=== PATIENT | female | born 1955 | race Caucasian/White ===

== ENCOUNTER → 2016-12-13 | Outpatient (CLI) | payer OTHER ==
[~2016-12-13] MED LIST: ASPI81TA28 PO; ATOR10TA88 PO; COEN1CAP17 PO; ESTR0.3T PO; LEVO75TA PO; MISCCAP80 PO; MULT-506 PO; OMEG10007 PO
[2016-12-13 13:03] LABS: AST/SGOT 22 U/L (15-37); BLOOD UREA NITROGEN 20 mg/dl (7-18); CALCIUM 9.5 mg/dl (8.5-10.1); CARBON DIOXIDE 31 mmol/L (21-32); CHLORIDE 104 mmol/L (98-107); CREATININE 0.89 mg/dl (0.60-1.20); GLUCOSE 80 mg/dl (70-99); POTASSIUM 4.1 mmol/L (3.5-5.1); SODIUM 139 mmol/L (136-145)
[2016-12-13 13:13] LABS: ALB/GLOB RATIO 1.1 (0.9-2); ALKALINE PHOSPHATASE 63 U/L (45-117); ALT/SGPT 35 U/L (12-78); CHOLESTEROL 189 mg/dl (0-200); HDL CHOLESTEROL 63 mg/dl; LDL CHOLESTEROL CALCULATED 109 mg/dl; TRIGLYCERIDES 83 mg/dl (0-150); VERY LOW DENSITY LIPOPROT CALC 17 mg/dl
[2016-12-13 13:32] LABS: ESTIMATED AVERAGE GLUCOSE 117 mg/dl; HA1C FLAG Normal (Normal)
== END | disposition home or self-care (01) ==
LOC: C.LABPBG 07:34
PROVIDERS: ATTEND Family Medicine
DX: E78.00 Pure hypercholesterolemia, unspecified (principal); E03.9 Hypothyroidism, unspecified; R73.03 Prediabetes

== ENCOUNTER → 2017-01-05 | Outpatient (CLI) | payer OTHER ==
--- NOTE | 2017-01-05 08:16 | DIAGNOSTIC IMAGING REPORT ---
THYROID ULTRASOUND CLINICAL HISTORY: R22.1 Nodule of [id number] COMPARISON STUDY: Thyroid ultrasound on July 14, 2014. TECHNIQUE: Sonography of the thyroid gland was performed. FINDINGS: The right thyroid lobe measures 3.8 x 0.8 x 1 cm and the left lobe measures 3 x 1.1 x 1 cm. No right lobe thyroid nodule is noted. Note is made of a 1.3 x 0.7 x 0.8 cm mixed echogenicity solid nodule within the mid to lower pole of the left thyroid lobe. Allowing for measurement variability, this is similar to prior exam. This nodule was previously aspirated. IMPRESSION: No significant change in the previously aspirated left lobe thyroid nodule. Electronically signed by: Eliel Rush M.D. 01/05/2017 8:14 AM Dictated Date/Time: 01/05/2017 8:11 AM
== END | disposition home or self-care (01) ==
LOC: C.ULTR 07:38
PROVIDERS: ATTEND Family Medicine
DX: E04.1 Nontoxic single thyroid nodule (principal)

== ENCOUNTER → 2017-03-07 | Outpatient (CLI) | payer OTHER ==
[~2017-03-07] MED LIST changes: +ATOR10TA82 PO; -ATOR10TA88 PO
--- NOTE | 2017-03-08 14:34 | MAMMOGRAPHY REPORT ---
BILATERAL DIGITAL SCREENING MAMMOGRAM TOMOSYNTHESIS WITH CAD: 03/07/2017 CLINICAL HISTORY: Routine screening. TECHNIQUE: Breast tomosynthesis in addition to standard 2D mammography was performed. Current study was also evaluated with a Computer Aided Detection (CAD) system. COMPARISON: Comparison is made to exams dated: 03/06/2016 mammogram, 03/02/2015 mammogram, 12/22/2013 mammogram, 12/03/2012 mammogram, 11/21/2011 mammogram, and 11/15/2010 mammogram - [facility]. BREAST COMPOSITION: The tissue of both breasts is heterogeneously dense, which may obscure small mas ses. FINDINGS: There is an 11 mm asymmetry seen within the right lateral breast middle depth on the MLO vi ew only, which may represent normal overlapping fibroglandular tissue although spot compression tomos ynthesis views and possible breast ultrasound are recommended for further evaluation. The remainder of both breasts are stable compared to prior exams, without suspicious masses, calcific ations, or areas of architectural distortion noted. Scattered bilateral benign-appearing calcificati ons are not significantly changed. IMPRESSION: ACR BI-RADS CATEGORY 0: INCOMPLETE EVALUATION: NEED ADDITIONAL IMAGING EVALUATION Right breast asymmetry, for which additional imaging evaluation is recommended. The patient will be called to schedule an appointment. Approximately 10% of breast cancers are not detected with mammography. A negative mammographic report should not delay biopsy if a clinically suggestive mass is present. Paige Reyna M.D. /:03/07/2017 16:48:30 [employer]: Luis MARX(Andrzej)(Ricardo), [facility] letter sent: Addl Imaging 0 BI-RADS Code: ACR BI-RADS Category 0: Incomplete Evaluation: Need Additional Imaging Evaluation
== END | disposition home or self-care (01) ==
LOC: C.MAMM 08:12
PROVIDERS: ATTEND Family Medicine
DX: Z12.31 Encounter for screening mammogram for malignant neoplasm of breast (principal); N64.89 Other specified disorders of breast

== ENCOUNTER → 2017-07-09 | Outpatient (CLI) | payer OTHER ==
[2017-07-09 12:49] LABS: HEMOGLOBIN A1C 5.7 % (4.5-5.6)
[2017-07-09 13:37] LABS: ALBUMIN 3.8 gm/dl (3.4-5.0); ALT/SGPT 30 U/L (12-78); BLOOD UREA NITROGEN 18 mg/dl (7-18); CALCIUM 8.9 mg/dl (8.5-10.1); CARBON DIOXIDE 29 mmol/L (21-32); CHOLESTEROL 170 mg/dl (0-200); CREATININE 0.87 mg/dl (0.60-1.20); GLUCOSE 88 mg/dl (70-99); POTASSIUM 4.3 mmol/L (3.5-5.1); SODIUM 140 mmol/L (136-145)
[2017-07-09 13:48] LABS: ALKALINE PHOSPHATASE 56 U/L (45-117); AST/SGOT 18 U/L (15-37); LDL CHOLESTEROL CALCULATED 102 mg/dl; TOTAL PROTEIN 6.9 gm/dl (6.4-8.2)
== END | disposition home or self-care (01) ==
LOC: C.LABPBG 07:32
PROVIDERS: ATTEND Family Medicine
DX: E78.00 Pure hypercholesterolemia, unspecified (principal); E03.9 Hypothyroidism, unspecified; R73.03 Prediabetes

== ENCOUNTER 2019-08-04 06:09 | Inpatient (IN) ==
--- NOTE | 2019-07-16 12:30 | PAT Medication Instructions ---
Medication Instructions Date of Service July 16, 2019 Home Medications Medication Instructions Recorded atorvastatin 10 mg tablet 10 mg PO DAILY #90 tab 01/24/19 coenzyme Q10 100 mg capsule 100 mg PO DAILY #30 cap 01/24/19 conjugated estrogens 0.3 mg tablet 0.3 mg PO DAILY #90 tab 01/24/19 levothyroxine 75 mcg tablet 75 mcg PO DAILY #90 tab 01/24/19 multivitamin 1 tab PO DAILY #30 tab 01/24/19 atorvastatin 10 mg tablet 10 mg PO DAILY coenzyme Q10 100 mg capsule 100 mg PO DAILY conjugated estrogens 0.3 mg tablet 0.3 mg PO DAILY levothyroxine 75 mcg tablet 75 mcg PO DAILY multivitamin 1 tab PO DAILY acetaminophen [Tylenol Arthritis Pain] 650 mg PO DAILY PRN bacillus coagulans-inulin [Probiotic with Prebiotic] 1 cap PO DAILY meloxicam 15 mg PO DAILY PRN prednisone 10 - 80 mg PO UD Continue as directed prednisone 10 - 80 mg PO UD ASK your surgeon for instructions conjugated estrogens 0.3 mg tablet 0.3 mg PO DAILY meloxicam 15 mg PO DAILY PRN STOP taking 2 weeks before surgery (or as soon as possible if surgery is within 2 weeks) coenzyme Q10 100 mg capsule 100 mg PO DAILY DO NOT take the morning of surgery multivitamin 1 tab PO DAILY bacillus coagulans-inulin [Probiotic with Prebiotic] 1 cap PO DAILY Take morning of surgery With a small sip of water, OTHERWISE NOTHING TO EAT OR DRINK AFTER MIDNIGHT: atorvastatin 10 mg tablet 10 mg PO DAILY levothyroxine 75 mcg tablet 75 mcg PO DAILY acetaminophen [Tylenol Arthritis Pain] 650 mg PO DAILY PRN (okay to take up to 4 hours prior to surgery if needed) Take evening before surgery acetaminophen [Tylenol Arthritis Pain] 650 mg PO DAILY PRN (if needed) Other Notes If you have any questions please call us at [phone] or [phone] or [phone] or [phone]
--- NOTE | 2019-07-17 08:20 | Anesthesiology Consultation ---
Date of Service July 17, 2019 Assessment & Plan (1) Encounter for pre-operative examination: Chart Review Chart Review: Acceptable Risk for Surgery and Patient seen in Pre Admission Testing Teaching & Discussion Pre-Anesthesia Teaching/Discussion Notes: Instructed NPO after midnight before surgery,except medications with 15 cc of water. Medication instructions provided according to the PAT guidelines. History Surgery Operation Date: 08/22/19 14:05 Proposed Procedures p C5-C6 Anterior Cervical Discectomy and Fusion, C6 Corpectomy, Spinal Cord Monitoring - Emmanuel Marhkam DO Height/Weight Height: 5 ft 6.5 in Weight: 73.1 kg Allergies Allergy/AdvReac Type Severity Reaction Status Date / Time povidone-iodine Allergy Severe broke down Verified 07/16/19 10:38 [From Betadine] skin, rash soap [From Betadine] Allergy Severe broke down Verified 07/16/19 10:38 skin, rash Medications Home Medications Medication Instructions Recorded Confirmed Last Taken atorvastatin 10 mg tablet 10 mg PO DAILY #90 tab 01/24/19 07/16/19 Unknown coenzyme Q10 100 mg capsule 100 mg PO DAILY #30 cap 01/24/19 07/16/19 Unknown conjugated estrogens 0.3 mg tablet 0.3 mg PO DAILY #90 tab 01/24/19 07/16/19 Unknown levothyroxine 75 mcg tablet 75 mcg PO DAILY #90 tab 01/24/19 07/16/19 Unknown multivitamin 1 tab PO DAILY #30 tab 01/24/19 07/16/19 Unknown acetaminophen [Tylenol Arthritis 650 mg PO DAILY PRN 07/16/19 07/16/19 Unknown Pain] bacillus coagulans-inulin 1 cap PO DAILY 07/16/19 07/16/19 Unknown [Probiotic with Prebiotic] meloxicam 15 mg PO DAILY PRN 07/16/19 07/16/19 Unknown prednisone 10 - 80 mg PO UD 07/16/19 07/16/19 Unknown Past Medical History Medical History Bulging of intervertebral disc Degenerative disc disease Diverticulitis Hyperlipidemia Hypothyroidism Osteoarthritis Varicose vein of leg Exercise / Class Metabolic Activity II 4-5 Yardwork/Stairs/Walk up hill Past Family History Family History Son FHx: Hodgkin's disease, Onset Age: 35 Hodgkin's Lymphoma Past Surgical History Surgical History H/O laminectomy L5-S1 H/O vein stripping History of appendectomy History of colonoscopy History of tubal ligation S/P arthroscopy of right shoulder S/P epidural steroid injection S/P right hemicolectomy S/P T&A (status post tonsillectomy and adenoidectomy) S/P EMERSON-BSO Past Anesthesia History No Hx of Anesthesia Complications and No Family Hx of Anesthesia Complications History of PONV No Hx of PONV and Hx of Motion Sickness (with car rides) Social History Smoking Status: Never smoker Do You Dip or Chew Tobacco: No Hx Alcohol Use: Yes Alcohol type: wine alcohol intake frequency: a few times a week Hx Substance Use: No substance use type: does not use Review of Systems Patient denies chest pain, shortness of breath, dyspnea on exertion, cough, wheezing, palpitations. Physical Exam Vital Signs VITALS BP 156/73 P 74 TEMP 97.9 SP02 96%RA RESP 18 PHYSICAL Decreased cervical extension 2/2 cervicalgia Full TMJ range of motion. TMD 3 finger breaths Mallampati Score 2 Dentition: intact Lungs: clear throughout to auscultation Cardiac: regular rate and rhythm, no murmurs noted Spine: normal Carotid arteries: negative bruit Extremities: no edema Testing Laboratory Results PT 10.3 Seconds (9.0-12.0) 07/17/19 09:13 INR 1.0 (0.9-1.1) 07/17/19 09:13 APTT 22.8 Seconds (21.0-31.0) 07/17/19 09:13 Urine Color Yellow 07/17/19 09:13 Urine Appearance Clear (Clear) 07/17/19 09:13 Urine pH 7.0 (4.5-7.5) 07/17/19 09:13 Ur Specific [place] 1.021 (1.000-1.030) 07/17/19 09:13 Urine Protein Negative (Negative) 07/17/19 09:13 Urine Glucose (UA) Negative (Negative) 07/17/19 09:13 Urine Ketones Negative (Negative) 07/17/19 09:13 Urine Nitrite Negative (Negative) 07/17/19 09:13 Ur Leukocyte Esterase Negative (Negative) 07/17/19 09:13 Blood Type A Positive 07/17/19 09:13 Antibody Screen NEGATIVE 07/17/19 09:13 07/17/19 WBC 10.27 H/H 14.2/43.3 PLATELETS 242 SODIUM 139 POTASSIUM 3.9 CHLORIDE 105 CO2 30 BUN 19 CREATININE 0.88 GLUCOSE 75 TSH 0.789 (WNL) HGBA1C 5.8% Electrocardiogram Date: 07/17/19 Findings: + NSR @ (61) Chest X-Ray Date: 07/17/19 Chronic interstitial thickening is similar to previous. There is mild bibasilar scarring/atelectasis. No airspace consolidation or pleural effusion is identified. There is no pneumothorax. The skeletal structures are osteopenic. The bony thorax appears intact. IMPRESSION: No active disease in the chest.
--- NOTE | 2019-07-17 09:40 | XRay Report ---
TWO VIEW CHEST CLINICAL HISTORY: Preoperative examination. FINDINGS: PA and lateral chest radiographs are compared to study dated 10/23/2013 and correlated with chest CT dated 02/01/2015. The cardiomediastinal silhouette is unremarkable. Chronic interstitial thic kening is similar to previous. There is mild bibasilar scarring/atelectasis. No airspace consolidatio n or pleural effusion is identified. There is no pneumothorax. The skeletal structures are osteopenic . The bony thorax appears intact. IMPRESSION: No active disease in the chest. ACT 112: Negative or not required by law. Electronically signed by: Isaias Brennan M.D. 07/17/2019 9:39 AM
[2019-07-17 11:00] LABS: Appearance Urine Clear (Clear); Bilirubin Urine Negative (Negative); Blood Urine Negative (Negative); Color Urine Yellow; Glucose Urine UA Negative (Negative); Ketones Urine Negative (Negative); Leukocyte Esterase Urine Negative (Negative); Nitrite Urine Negative (Negative); Protein Urine Negative (Negative); Specific Gravity Urine 1.021 (1.000-1.030); Urobilinogen Urine Negative (Negative)
[2019-07-17 11:11] LABS: Partial Thromboplastin Ratio 0.8; Partial Thromboplastin Time 22.8 Seconds (21.0-31.0); Prothrombin Time 10.3 Seconds (9.0-12.0)
--- NOTE | 2019-07-17 18:09 | Electrocardiogram Report ---
Test Reason : Blood Pressure : / mmHG Vent. Rate : 061 BPM Atrial Rate : 061 BPM P-R Int : 136 ms QRS Dur : 090 ms QT Int : 410 ms P-R-T Axes : 057 -16 055 degrees QTc Int : 412 ms Normal sinus rhythm Normal ECG When compared with ECG of 18-NOV-2015 08:50, No significant change was found Confirmed by Victor Manuel Cooney ([id number]) on 07/17/2019 6:08:52 PM Referred By: Emmanuel Markham Confirmed By:Victor Manuel Cooney
[~2019-08-04 06:09] MED LIST changes: +ACETAMINOPHEN 500 MG TAB PO SCH; -ASPI81TA28 PO; -ATOR10TA82 PO; +CEFAZOLIN 1000MG 1,000 MG/7.5 ML SYR IV SCH; -COEN1CAP17 PO; +CeleBREX 200 MG CAP PO SCH; -ESTR0.3T PO; +GABAPENTIN 600 MG DOSE PO SCH; -LEVO75TA PO; +LR 15ML/HR IV SCH; -MISCCAP80 PO; -MULT-506 PO; -OMEG10007 PO
[2019-08-04] MEDS ORDERED: MIDAZOLAM HCL 1 MG/ML 2ML VIAL ONE (06:51)
[2019-08-04] MEDS ORDERED: PROPOFOL IV EMULSION 10 MG/ML 20 ML VIAL IV ONE (06:51)
[2019-08-04] MEDS ORDERED: ONDANSETRON INJ 2 MG/ML 2 ML VIAL ONE (06:51)
[2019-08-04] MEDS ORDERED: ROCURONIUM BROMIDE 10 MG/ML 5 ML VIAL ONE (06:51)
[2019-08-04] MEDS ORDERED: LIDOCAINE HCL 2% 2 ML VIAL/AMP(20MG/ML) INFIL ONE (06:51)
[2019-08-04] MEDS ORDERED: fentaNYL citrate 100 MCG/2 ML VIAL ONE ×2 (06:52→09:55)
[2019-08-04] MEDS ORDERED: PROMETHAZINE HCL 12.5 MG in SODIUM CHLORIDE 0.9% 50 ML IV PRN ×2 (06:59→11:17)
[2019-08-04] MEDS ORDERED: LABETALOL HCL IV 5 MG/ML 20ML IV PRN (06:59)
[2019-08-04] MEDS ORDERED: ONDANSETRON INJ 2 MG/ML 2 ML VIAL IV PRN ×2 (06:59→11:17)
[2019-08-04] MEDS ORDERED: MoRPHine SULFATE 10 MG/ML CARP/VIAL IV PRN (06:59)
[2019-08-04] MEDS ORDERED: ATROPINE SULFATE 0.1 MG/ML 10ML SYR IV PRN (06:59)
--- NOTE | 2019-08-04 07:29 | History & Physical Bridge Note ---
Date of Service August 04, 2019 History & Physical Bridge Note I have examined the patient, reviewed the History & Physical and in the interval since the performance of the History & Physical I have noted the following changes of clinical significance: no changes noted
--- NOTE | 2019-08-04 07:31 | History & Physical Report ---
Date of Service August 04, 2019 Assessment & Plan (1) Myelopathy concurrent with and due to spinal stenosis of cervical region: C7 corpectomy Present on Admission?: Yes History of Present Illness Chief Complaint: Neck pain arm pain and weakness Primary Care Provider: Keely Delgado DO This is a 63-year-old female who presents with marked decline in neurologic status with neck and arm symptoms. Subsequently she is here for urgent surgery. Allergies Allergy/AdvReac Type Severity Reaction Status Date / Time povidone-iodine Allergy Severe broke down Verified 08/04/19 06:23 [From Betadine] skin, rash soap [From Betadine] Allergy Severe broke down Verified 08/04/19 06:23 skin, rash Home Medications Home Medications Medication Instructions Recorded Confirmed Type atorvastatin 10 mg tablet 10 mg PO DAILY #90 tab 01/24/19 08/04/19 Rx coenzyme Q10 100 mg capsule 100 mg PO DAILY #30 cap 01/24/19 08/04/19 Rx conjugated estrogens 0.3 mg tablet 0.3 mg PO DAILY #90 tab 01/24/19 08/04/19 Rx levothyroxine 75 mcg tablet 75 mcg PO DAILY #90 tab 01/24/19 08/04/19 Rx multivitamin 1 tab PO DAILY #30 tab 01/24/19 08/04/19 Rx acetaminophen [Tylenol Arthritis 650 mg PO DAILY PRN 07/16/19 08/04/19 History Pain] bacillus coagulans-inulin 1 cap PO DAILY 07/16/19 08/04/19 History [Probiotic with Prebiotic] meloxicam 15 mg PO DAILY PRN 07/16/19 08/04/19 History Past Med/Surg History Medical History Bulging of intervertebral disc Degenerative disc disease Diverticulitis Hyperlipidemia Hypothyroidism Osteoarthritis Varicose vein of leg Surgical History H/O laminectomy L5-S1 H/O vein stripping History of appendectomy History of colonoscopy History of tubal ligation S/P arthroscopy of right shoulder S/P epidural steroid injection S/P right hemicolectomy S/P T&A (status post tonsillectomy and adenoidectomy) S/P EMERSON-BSO Family History Son FHx: Hodgkin's disease, Onset Age: 35 Hodgkin's Lymphoma Social History Preferred Language: Hebrew Communication Ability: Effective Visual Impairment: No Limitations Hearing Ability: Normal Chief Procurement Officer Required: No Beliefs That Will Affect Care: None marital status: Current Living Situation: Spouse current occupational status: employed Other Information That Helps Us Care for You: No Feels Safe at Home: Yes Safety Concerns: Feels Safe At This Time Smoking Status: Never smoker Do You Dip or Chew Tobacco: No ; Second Hand Exposure: No (hx father smoked) ; Tobacco Cessation Education Requested by Patient: No Hx Alcohol Use: Yes Alcohol type: wine Alcohol Intake Frequency: Rarely Hx Substance Use: No Childhood Exposure to Second-Hand Smoke: Yes caffeine: Yes Dental Care, Regularly: Yes Physical Activity Frequency: 3-4 Times per Week Physical Activity Frequency Comment: walking Seatbelt Use: always Sunscreen Use: Yes Physical Exam Physical Exam: Patient is alert and oriented Results & Data Vital Signs (Past 12 Hours) Vital Signs Temp Pulse Resp BP Pulse Ox 08/04/19 06:26 36.4 C L 82 18 156/98 H 96
[2019-08-04] MEDS ORDERED: BACITRACIN INJ 50,000 UNIT VIAL ONE (07:32)
[2019-08-04] MEDS ORDERED: FLOSEAL HEMOSTATIC MATRIX 10ML TOP ONE (09:06)
--- NOTE | 2019-08-04 09:36 | Operative Report ---
Post Operative Report Pre & Post Diagnosis Operation Date: 08/04/19 07:45 Pre-Op Diagnosis: Myelopathy Concurrent With And Due to Spinal Stenosis of Cervical Region Post-Op Diagnosis: Myelopathy Concurrent With And Due to Spinal Stenosis of Cervical Region I identified the patient and participated in the time-out.: Yes Procedure Operation Date: 08/04/19 07:45 Actual Procedures #1 anterior cervical corpectomy with bilateral foraminotomies and excision of herniated free fragment at C7. #2 anterior cervical arthrodesis C6-T1. #3 placement peek cage 27 mm in height at C6-6 T1. #4 placement of local harvested morselized autograft combined with DBM in the interbody cage. #5 placement of 5 complete screws from C7-T1. Surgeon Emmanuel Markham, DO Seismographer Terri Murray Estimated Blood Loss 25 Findings Consistent with Post-Op Diagnosis Specimens None Indications This is a 63-year-old female who presents with above-mentioned diagnosis in light of her declining condition we elected to undergo the above-mentioned procedure. Description of Procedure Patient was met with identified informed consent obtained. 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 All bony prominences well-padded eyes inspected to ensure no external pressure placed upon the. This point the anterior cervical spine was prepped and draped in normal sterile fashion with assistance of fluoroscopy identified the C7 vertebral body and a transverse incision was placed along the right anterior cervical spine overlying this region. Sharp dissection with assistance of bipolar electrocautery performed down to and exposing the anterior cervical spine from C6-T1. Self-retaining retractors placed. I then performed a complete discectomy of see 6 7 out to the uncovertebral joints bilaterally followed by see 7 T1. [place] distracting pins were then placed into C6 and T1 to distract across the C7 vertebral body. A complete corpectomy was then performed including removal of all posterior annular fibers longitudinal ligament bilateral foraminotomies performed and addressed a massive disc herniation that was along the right side of the canal posterior to the C7 vertebral body. After complete decompression the endplates were burred to subcortical bleeding bone and a 27 mm peek cage filled with locally harvested morselized autograft and DBM tapped in position. Distracting apparatus was removed and a kelly plate and screws applied with the assistance of fluoroscopy. The incision was then copiously irrigated explored to ensure no damage to surround structures remaining bleeding. 10 round LASHAUN drain inserted. The incision was then closed with 2 Vicryl in a fashion of 4 Monocryl for final skin closure. Steri-Strip sterile dressings placed. Patient will continue PACU in stable condition. Please note spinal cord monitoring was utilized that the procedure no changes noted. Lastly Terri Murray was present at the entire procedure involved the patient positioning complex portions of the surgery and final skin closure. I attest to the content of the Intraoperative Record and any orders documented therein. Any exceptions are noted below.
--- NOTE | 2019-08-04 10:04 | Fluoroscopy Report ---
FL cervical 2-3V CLINICAL HISTORY: 63 years-old Female presenting with ACDF C6-T1 C7 CORPECTOMY. TECHNIQUE: 3 fluoroscopic image(s) recorded as part of an intraoperative procedure. COMPARISON: None. FINDINGS/IMPRESSION: Anterior cervical discectomy and fusion of C6-T1. C7 corpectomy assumed by the lack of C7 screws. Nor mal anatomic alignment. Support devices project over the anterior neck. Surgical sponges may also be in place within the surgical site though not present on the last image. Please see surgical report for further details. Fluoroscopy dosage (mGy): Not available. Fluoroscopy time: 8.7 seconds. Number or time of high level fluoroscopy (HLF), digital spot, or digital subtraction images: 0. ACT 112: Negative or not required by law. Electronically signed by: Abelardo Goodson M.D. 08/04/2019 10:02 AM
--- NOTE | 2019-08-04 10:52 | Anesthesiology Progress Note ---
Date of Service August 04, 2019 Anesthesia Post Procedure Vital Signs Vital Signs: Temp Pulse Pulse Resp BP BP Pulse Ox 08/04/19 10:50 36.3 C L 69 14 125/73 99 08/04/19 10:40 54 L 14 134/79 99 08/04/19 10:30 54 L 16 129/72 98 08/04/19 10:20 60 16 135/75 100 08/04/19 10:10 55 L 16 127/76 100 08/04/19 10:00 56 L 16 126/79 100 08/04/19 09:50 36.0 C L 83 16 123/80 99 08/04/19 06:26 36.4 C L 82 18 156/98 H 96 Pain Intensity Right Arm: Pain Intensity: 6 Transfer of Care Handoff Completed per policy Notes Mental Status: alert / awake / arousable Patient Amnestic to Procedure: Yes Nausea / Vomiting: adequately controlled Pain: adequately controlled Airway Patency, RR, SpO2: stable & adequate BP & HR: stable & adequate Hydration State: stable & adequate Anesthetic Complications: no major complications apparent
[2019-08-04] MEDS ORDERED: DO NOT ADMINISTER PNEUMOCOCCAL VACCINE PRN (11:17)
[2019-08-04] MEDS ORDERED: ACETAMINOPHEN 500 MG TAB PO PRN (11:17)
[2019-08-04] MEDS ORDERED: ACETAMINOPHEN 1,000 MG/100 ML VIAL IV PRN (11:17)
[2019-08-04] MEDS ORDERED: DEXAMETHASONE SOD PHOSPHATE 8 MG in SYRINGE 0 ML IV PRN (11:17)
[2019-08-04] MEDS ORDERED: LORazepam 0.5 MG TAB PO PRN (11:17)
[2019-08-04] MEDS ORDERED: SOD PHOSPHATE/SOD BIPHOSPHATE ENEMA 132 ML BTL PR PRN (11:17)
[2019-08-04] MEDS ORDERED: LORazepam 0.5 MG/1 ML VIAL IV PRN (11:17)
[2019-08-04] MEDS ORDERED: ONDANSETRON 4 MG OD TAB PO PRN (11:17)
[2019-08-04] MEDS ORDERED: NALOXONE HCL 0.4 MG/1 ML VIAL/CARP IV PRN (11:17)
[2019-08-04] MEDS ORDERED: MAGNESIUM HYDROXIDE SUSP 30 ML UDC PO PRN (11:17)
[2019-08-04] MEDS ORDERED: DO NOT ADMINISTER FLU VACCINE PRN (11:17)
[2019-08-04] MEDS ORDERED: RACEPINEPHRINE 2.25% NEBU SOLN 0.5 ML VIAL INH PRN (11:17)
[2019-08-04] MEDS ORDERED: HYDROmorphone INJ 1 MG/ML SYRINGE IV PRN (11:17)
[2019-08-04] MEDS ORDERED: ALUMINUM/MAGNESIUM SUSP 30 ML UDC PO PRN (11:17)
[2019-08-04] MEDS ORDERED: METOCLOPRAMIDE HCL INJ 5 MG/ML 2 ML VIAL IV PRN (11:17)
[2019-08-04] MEDS ORDERED: FAMOTIDINE 20 MG TAB PO PRN (11:17)
[2019-08-04] MEDS ORDERED: HYDROmorphone INJ 0.5 MG/0.5 ML SYR IV PRN (11:17)
[2019-08-04] MEDS: LACTATED RINGER'S 1,000 ML IV SCH ×2 (12:25→23:07)
[2019-08-04] MEDS: OXYCODONE HCL IR 5 MG TAB (IMMEDIATE RELEASE) PO PRN ×2 (12:25→19:08)
[2019-08-04] MEDS: CEFAZOLIN 2000MG 2,000 MG/15 ML SYR IV SCH (16:10)
[2019-08-04] MEDS ORDERED: COUGH DROP (SUGAR FREE) LOZ 24 LOZ/1 BOX BUCCAL ONE (18:22)
[2019-08-04] MEDS ORDERED: DOCUSATE SODIUM/SENNA 50/8.6MG TAB PO SCH (21:00)
[2019-08-05] MEDS: OXYCODONE HCL IR 5 MG TAB (IMMEDIATE RELEASE) PO PRN (00:35)
[2019-08-05] MEDS: CEFAZOLIN 2000MG 2,000 MG/15 ML SYR IV SCH (00:36)
[2019-08-05 06:30] VITALS: TEMP 98.1
[2019-08-05] MEDS ORDERED: LEVOTHYROXINE SODIUM 75 MCG TABLET PO SCH (06:30)
[2019-08-05] MEDS: TRAMADOL HCL 50 MG TABLET PO PRN ×3 (06:32→12:02)
[2019-08-05] MEDS: POLYETHYLENE (MIRALAX) 17 GM PACK PO SCH ×2 (06:33→12:02)
[2019-08-05] MEDS ORDERED: ESTROGENS, CONJUGATED 0.3 MG TAB PO SCH (09:00)
[2019-08-05] MEDS ORDERED: NON-FORMULARY MEDICATION (Coenzyme Q10 [Co Q-10] 100 MG) PO SCH (09:00)
[2019-08-05] MEDS ORDERED: MULTIVITAMIN TAB PO SCH (09:00)
[2019-08-05] MEDS ORDERED: ATORVASTATIN 10 MG TAB PO SCH (09:00)
--- NOTE | 2019-08-05 10:10 | Anesthesiology Progress Note ---
Date of Service August 05, 2019 Anesthesia Post Procedure Vital Signs Vital Signs: Temp Pulse Pulse Pulse Pulse Resp BP 08/05/19 07:31 68 14 08/05/19 07:08 36.7 C 65 16 139/80 08/05/19 06:26 36.7 C 71 18 134/79 08/05/19 04:10 36.9 C 73 16 116/68 08/05/19 03:50 75 18 08/05/19 02:09 36.9 C 62 14 117/67 08/05/19 00:10 36.9 C 74 14 132/74 08/04/19 23:18 73 16 08/04/19 22:00 36.9 C 61 16 117/71 08/04/19 20:15 37.2 C 75 20 130/73 08/04/19 19:05 78 16 08/04/19 18:15 36.8 C 96 H 20 132/81 08/04/19 16:17 37.0 C 79 18 127/79 08/04/19 14:31 70 16 08/04/19 14:00 37 C 89 16 127/77 08/04/19 12:47 36.9 C 85 16 131/83 08/04/19 12:12 67 18 131/85 08/04/19 11:47 36.6 C 56 L 16 130/81 08/04/19 11:32 63 16 08/04/19 11:30 65 18 150/91 H 08/04/19 11:00 36.6 C 70 16 130/81 08/04/19 10:50 36.3 C L 69 14 125/73 08/04/19 10:40 54 L 14 134/79 08/04/19 10:30 54 L 16 129/72 08/04/19 10:20 60 16 135/75 08/04/19 10:10 55 L 16 127/76 Pulse Ox 08/05/19 07:31 98 08/05/19 07:08 97 08/05/19 06:26 97 08/05/19 04:10 96 08/05/19 03:50 97 08/05/19 02:09 94 08/05/19 00:10 95 08/04/19 23:18 99 08/04/19 22:00 93 08/04/19 20:15 97 08/04/19 19:05 98 08/04/19 18:15 95 08/04/19 16:17 97 08/04/19 14:31 95 08/04/19 14:00 95 08/04/19 12:47 97 08/04/19 12:12 97 08/04/19 11:47 97 08/04/19 11:32 98 08/04/19 11:30 98 08/04/19 11:00 96 08/04/19 10:50 99 08/04/19 10:40 99 08/04/19 10:30 98 08/04/19 10:20 100 08/04/19 10:10 100 Pain Intensity Right Arm: Pain Intensity: 0 Anterior Neck: Pain Intensity: 3 Neck: Pain Intensity: 5 Notes Mental Status: alert / awake / arousable Nausea / Vomiting: adequately controlled Pain: adequately controlled Airway Patency, RR, SpO2: stable & adequate BP & HR: stable & adequate Hydration State: stable & adequate Anesthetic Complications: no major complications apparent
[2019-08-05 10:18] VITALS: BP 137/82
[2019-08-05] MEDS ORDERED: DEXAMETHASONE SOD PHOSPHATE 8 MG in SYRINGE 0 ML IV ONE (10:30)
--- NOTE | 2019-08-05 10:37 | Discharge Summary ---
Date of Service August 05, 2019 Admission HPI Per Admitting Provider This is a 63-year-old female who presents with marked decline in neurologic status with neck and arm symptoms. Subsequently she is here for urgent surgery. Principal Diagnosis Cervical spinal stenosis with myeloradiculopathy Discharge Data Allergies Allergy/AdvReac Type Severity Reaction Status Date / Time povidone-iodine Allergy Severe broke down Verified 08/04/19 06:23 [From Betadine] skin, rash soap [From Betadine] Allergy Severe broke down Verified 08/04/19 06:23 skin, rash Procedures Performed Operation Date: 08/04/19 07:45 Actual Procedures p C6-T1 Anterior Cervical Discectomy and C7 Corpectomy with Spinal Cord Monitoring(Not Applicable) - Emmanuel Markham DO Ordered Studies 08/04/19 07:45 FL cervical 2-3V Routine FL fluoroscopy <1hr Routine Hospital Course (1) Myelopathy concurrent with and due to spinal stenosis of cervical region: Patient underwent anterior cervical corpectomy tolerated this well was taken to orthopedic for postoperative. Postop day #1 her arm symptoms were markedly improved. She swallowing well. Modest hoarseness. LASHAUN drain decreasing appropriately. Excellent strength testing. Subsequently discharged home. Discharge orders instructions from the chart for further review. Total Time Total Time Spent Total Time Spent (In Minutes): 20 minutes Discharge Plan Discharge Items Patient Disposition: Home - Self-Care Reason For Visit: Spinal Stenosis, Cervical Region Discharge Diagnosis: Cervical spinal stenosis with myeloradiculopathy Activity: As commented below Non-emergency contact: Primary Care Provider Call non-emergency contact if: you have any medication questions Follow-up/Referrals: Keely Delgado DO [Primary Care Provider] - Diet: Regular Addtl Attending Provider Instructions: ACTIVITY RECOMMENDATIONS: SELF CARE INSTRUCTIONS AFTER CERVICAL FUSIONS 1. No smoking. Smoking drastically decreases the chance of a solid fusion. 2. No bending, lifting more than 5 pounds, or twisting (roll like a log when turning in bed). 3. You may shower 3 days after surgery. Thoroughly dry wound. Do not soak in the tub. 4. Cervical collar: Must be worn at all times including sleeping. You may remove the brace only to bath, eat and if you are sitting in a recliner. 5. Please walk as much as you can for exercise. Gradually increase the distance that you walk as your endurance increases. SPECIAL CARE INSTRUCTIONS: VERY IMPORTANT TO READ AND REVIEW A. Do not take any anti-inflammatory medications (i.e. Indocin, Advil, Aspirin, Naprosyn, Aleve, Motrin, etc.) as these may inhibit the chance of a solid fusion. Tylenol is okay to take. B. Your surgical incision has been closed with a cosmetic suture under the skin that will dissolve in about 6 weeks. In 14 days, you can use a pair of clean scissors and cut the suture that is left outside of the skin at the ends of your incision. C. Complications are uncommon, but please contact us if you have any signs or symptoms of: 1. wound infection (fever higher than 102.5 degrees F, redness, separation of wound, drainage, or increasing pain from the incision) 2. blood clots in legs (pain, swelling, redness and warmth in legs) 3. urinary tract infection (fever higher than 102.5 degrees, burning upon urination or increased frequency of urination) 4. nerve problems (inability to walk on your toes or heels, numbness, loss of bowel or bladder control) 5. any other symptoms that concern you. D. Please call the office at if you have any concerns or questions about your operation or recovery. MANAGING PAIN AFTER SPINAL SURGERY 1. Narcotic medication is intended for short-term use and will be provided for surgical pain. Surgical pain usually lasts for a period of 4-6 weeks. Narcotic medication includes Percocet, Vicodin, Darvocet, Tylenol #3 or Lortab. 2. Longer-term pain is more appropriately treated with non-narcotic medication such as Tylenol ES. 3. Muscle spasm is not appropriately treated with narcotics. Muscle relaxers such as Soma, Flexeril or Skelaxin can be used along with Tylenol ES. 4. Remember that we all live with some "aches and pains". This is not unusual or uncommon after an injury or as we get older. 5. We will provide appropriate medication within the normal guidelines of their prescribed use. We will also be very cautious and aware of potential abuse and extended duration of patients' medication needs. 6. Please allow 2-3 days to process refills. Prescriptions will not be mailed but must be picked up at the office. FOLLOW UP VISIT: Keep your scheduled follow-up appointment. Any questions, please call the office at . Pending Studies at Discharge: No Stand-Alone Forms: My [facility], Smoking Cessation Medications and DC Order Prescriptions: New tramadol 50 mg tablet 50 mg PO Q6H PRN (Reason: pain, moderate) Qty: 10 RF: 0 oxycodone 5 mg tablet 5 mg PO Q6H PRN (Reason: pain, severe) Qty: 10 RF: 0 Continued atorvastatin 10 mg tablet 10 mg PO DAILY Qty: 90 RF: 3 coenzyme Q10 [Co Q-10] 100 mg capsule 100 mg PO DAILY Qty: 30 RF: 0 levothyroxine 75 mcg tablet 75 mcg PO DAILY Qty: 90 RF: 3 Premarin 0.3 mg tablet 0.3 mg PO DAILY Qty: 90 RF: 3 multivitamin [Daily Multi-Vitamin] tablet 1 tab PO DAILY Qty: 30 RF: 0 acetaminophen [Tylenol Arthritis Pain] 650 mg Tablet Extended Release 650 mg PO DAILY PRN (Reason: Pain) RF: 0 Probiotic with Prebiotic 1 billion-250 cell-mg Capsule 1 cap PO DAILY RF: 0 Discontinued meloxicam 15 mg tablet 15 mg PO DAILY PRN (Reason: Pain) RF: 0 Discharge Orders: Discharge Order (Routine); Ordered 08/05/19 Ordered By: Emmanuel Markham Admission Data Admit Date/Time: 08/04/19 09:57 Attending Provider: Emmanuel Markham Admit Provider: Emmanuel Markham Primary Care Provider: Keely Delgado
[2019-08-05 11:30] VITALS: PULSE 75; O2SAT 97
[2019-08-06] MEDS ORDERED: bisacodyL 10 MG SUPP PR PRN (09:37)
== END 2019-08-05 13:01 | disposition home or self-care (01) | DRG 472 ==
LOC: ASU 06:09 → 3E 09:57